=== PATIENT | male | born 1940 | race Hispanic/Latino ===

== ENCOUNTER 2018-10-15 06:08 | Day surgery (SDC) | payer MEDICARE ==
[2018-09-28 11:29] VITALS: BMI 32.4
[2018-10-15 07:29] LABS: INR 1.06; PARTIAL THROMBOPLASTIN TIME 31.7 Seconds (25.1-36.5); PROTHROMBIN TIME 12.2 SECONDS (9.4-12.5)
[2018-10-15] MEDS ORDERED: Rocuronium 10 mg/ml (5 ml) ONE ×2 (07:33→08:44)
[2018-10-15] MEDS ORDERED: Succinylcholine 200 mg/10 ml Inj IV ONE (07:33)
[2018-10-15] MEDS ORDERED: Midazolam 2 MG/2 ML VIAL ONE (07:33)
[2018-10-15] MEDS ORDERED: Etomidate 20 mg/10ml Inj IV ONE (07:33)
[2018-10-15 07:35] VITALS: TEMP 97.7
[2018-10-15] MEDS ORDERED: ePHEDrine 50 mg/ml Inj ONE (08:02)
[2018-10-15] MEDS: Bupivacaine 0.5% 50 ML IJ ONE ×2 (08:16→09:09)
[2018-10-15] MEDS ORDERED: Neostigmine Methylsulfate 3mg/3ml Syringe IV ONE (09:10)
--- NOTE | 2018-10-15 09:43 | PCM.SURG1 ---
Surgeon's Initial Post Op Note - Surgeon's Notes Surgeon: Dr. Morin Die Repairer Trimmer Dies: Dr. Sim PGY3 Type of Anesthesia: General Endo Pre-Operative Diagnosis: right inguinal hernia Operative Findings: see dictation Post-Operative Diagnosis: same Operation Performed: open right inguinal hernia repair with mesh Specimen/Specimens Removed: hernia sac, cord lipoma Estimated Blood Loss: EBL {In ML}: 10 Blood Products Given: N/A Drains Used: No Drains Post-Op Condition: Good Date of Surgery/Procedure: 10/15/18 Time of Surgery/Procedure: 09:43
[2018-10-15 10:49] VITALS: RESP 18
[2018-10-15 11:22] VITALS: BP 117/63; PULSE 72; O2SAT 94
--- NOTE | 2018-10-15 21:10 | OP ---
PROCEDURE DATE: 10/15/2018 PREOPERATIVE DIAGNOSIS: Symptomatic incarcerated right inguinal hernia. POSTOPERATIVE DIAGNOSIS: Symptomatic incarcerated right inguinal hernia. PROCEDURE PERFORMED: Repair of the incarcerated right inguinal hernia. SURGEON: Eran Morin MD RANGE SCIENTIST: Park Sim DO ANESTHESIOLOGIST: Dr. Núñez. ANESTHESIA: General endotracheal anesthesia. ESTIMATED BLOOD LOSS: Minimal. SPECIMEN: Hernia sac and cord lipoma. INDICATIONS: The patient is a 77-year-old male with a history of large bulge in the right groin, associated with tenderness and discomfort and unable to reduce. The patient was seen in the office and scheduled for the repair of the incarcerated right inguinal hernia. DESCRIPTION OF PROCEDURE: First a standard time-out procedure took place when everybody in the room agreed as to the patient identity, diagnosis and procedure to be performed. Using lidocaine mixed with Marcaine, the incision site was infiltrated and an incision was made directly overlying the inguinal canal. The incision was carried through subcutaneous fat and fascia down to the external oblique aponeurosis which was incised along its fibers. The underlying cord structures were carefully mobilized on a Kirit drain. The ilioinguinal nerve was identified and pushed to side in order to avoid injury. The cord was then skeletonized. It was noted that there was an indirect hernia as well as weakness of the floor of the inguinal canal. We then proceeded with mobilizing the internal ring of the inguinal canal and the hernia sac from the cord structures that was ligated out its base and amputated. The cord lipoma was also from the cord structures and amputated and ligated. We then proceeded with mobilization of the preperitoneal space and the internal ring of the inguinal canal and placed the PHS mesh in place. The external leaf of the mesh was then sutured to the edges of transversalis fascia and inguinal ligament. Cut out was made for the cord exit site and the cord was placed through that cut out. The mesh was then placed flatly on the floor of the inguinal canal. The excess mesh was excised. The mesh was covering the entire floor of the inguinal canal all the way up to the pubic tubercle and beyond the exit site of the spermatic cord. The ilioinguinal nerve was placed back in its original position now. The external oblique aponeurosis was sutured together using 3-0 Vicryl and the area was infiltrated with lidocaine mixed with Toradol. The wound was copiously irrigated. All the irrigant fluid was suctioned out. There was excellent hemostasis. The wound was now closed using 3-0 Vicryl for Jayda's fascia, 3-0 Vicryl for the deep dermal layer and 4-0 Monocryl for the skin. A sterile Dermabond dressing was applied to the wound. The patient tolerated the procedure well and there were no complications. The patient was awakened and transferred to the recovery room for further observation. Eran Morin MD
== END 2018-10-15 11:42 | disposition home or self-care (01) ==
LOC: SDS 06:08
PROVIDERS: ATTEND General Practice
DX: K40.30 Unilateral inguinal hernia, with obstruction, without gangrene, not specified as recurrent (principal); D17.6 Benign lipomatous neoplasm of spermatic cord; I10 Essential (primary) hypertension; I25.10 Atherosclerotic heart disease of native coronary artery without angina pectoris
CPT/HCPCS: 36415; 49507; 85610; 85730; 88302; C1781; J0330; J0690; J1885; J2250; J2405; J2710; J2765; J3010; J7030; J7120